=== PATIENT | female | born 1975 | race Caucasian/White ===

== ENCOUNTER 2017-06-16 16:22 | Inpatient (IN) | payer OTHER ==
[~2017-06-16] VITALS: Ht 162.6 cm; Wt 99.6 kg
[~2017-06-16 16:22] MED LIST: ATIVAN1 MG PO; DEPAKOTE ER500 MG PO; DIVALPROEX SOD500 M1 PO; OLANZAPINE10 MG PO; TRIHEXYPHENIDYL5 M1 PO
--- NOTE | 2017-06-16 16:25 | ED PSYCHIATRIC COMPLAINT ---
History of Present Illness General Chief Complaint: Psychiatric Related Complaint Stated Complaint: BIBA PSYCH EVAL Source: patient, family Exam Limitations: language barrier Allergies Coded Allergies: NO KNOWN ALLERGIES (06/16/17) Reconcile Medications Aripiprazole (Abilify) 10 MG TABLET 10 MG PO DAILY MENTAL HEALTH (Reported) Divalproex Sodium 500 MG TABLET.DR 1 TAB PO TID bipolar Lorazepam (Ativan) 1 MG TAB 1 TAB PO BID ANXIETY Lorazepam (Ativan) 1 MG TAB 1 TAB PO Q8P PRN ANXIETY Olanzapine 10 MG TAB 1 TAB PO DAILY ANXIETY TRIHEXYPHENIDYL HCL (Trihexyphenidyl Hydrochloride) 5 MG TABLET 1 TAB PO TID ANXIETY/DEPRESSION Triage Nurses Notes Reviewed? yes Onset: Gradual Duration: few months Timing: recent history Severity: severe Associated Symptoms: AGITATION, HALLUCINATIONS : No HPI: This is a 42-year-old female with history of bipolar disorder off her meds for approximately 6 months presents to the ER with family for chief complaint of agitation, screaming at family members. Her sister reports that she had visions that Daniel told her to stop her medications several months ago. SHe just came back from visiting her homeland [place] for the past several months and states that her behavior is out of control and they have been trying to plead with her to get back on her medications with no effect. (Tracy Muniz MD) Vital Signs & Intake/Output Vital Signs & Intake/Output Vital Signs Date Time Temp Pulse Resp B/P B/P Pulse O2 O2 Flow FiO2 Mean Ox Delivery Rate 06/18 0846 98.1 94 114/86 06/17 2123 98.2 96 145/82 06/17 1810 98.4 90 16 144/67 98 Room Air ED Intake and Output 06/18 0000 06/17 1200 Intake Total Output Total Balance Patient 220 lb Weight (Niall OAKES,Mejia Cordova) Past History Travel History Traveled to [place] past 21 day No Psychosocial History What is your primary language Thai (Tracy Muniz MD) Medical History Any Pertinent Medical History? see below for history Surgical History Surgical History: non-contributory Family History Hx Contributory? No (Niall OAKES,Mejia Cordova) Review of Systems Review of Systems Constitutional: Reports: no symptoms. EENTM: Reports: no symptoms. Respiratory: Reports: no symptoms. Cardiovascular: Reports: no symptoms. GI: Reports: no symptoms. Genitourinary: Reports: no symptoms. Musculoskeletal: Reports: no symptoms. Skin: Reports: no symptoms. Neurological/Psychological: Reports: no symptoms. Hematologic/Endocrine: Reports: no symptoms. Immunologic/Allergic: Reports: no symptoms. All Other Systems: Reviewed and Negative (Mejia Tierney MD) Physical Exam Physical Exam Behavoir/Eye Contact/Speech: increased rate of speech, good eye contact Thoughts/Hallucinations: auditory hallucinations, phobic, mandaeism Skin: intact, normal color, warm/dry SAD PERSONS Done? patient not suicidal (Tracy Muniz MD) Physical Exam General Appearance: well developed/nourished, mild distress Head: atraumatic, normal appearance Eyes: Bilateral: normal appearance. Ears, Nose, Throat: normal pharynx, normal ENT inspection Neck: normal inspection, supple, full range of motion Respiratory: normal breath sounds Cardiovascular: regular rate/rhythm Gastrointestinal: normal bowel sounds, soft, non-tender Extremities: normal range of motion Neurological/Psychiatric: no motor/sensory deficits, agitated, anxious Appearance/Memory/Insight: impaired insight Thoughts/Hallucinations: no apparent hallucination SAD PERSONS SAD PERSONS Response Value Depression/Hopelessness? yes 2 Rational Thinking Loss? yes 2 Single//? yes 1 Social Support? has no support 1 Total 6 SAD PERSONS Done? yes (Niall OAKES,Mejia Cordova) Progress Differential Diagnosis: bipolar, adjustment disorder vs other. , MANIC EPISODE, HALLUCINATIONS,PSYCHOSIS, SUBSTANCE ABUSE Hand-Off Endorsed To: Mejia Tierney MD Endorsed Time: 2308 Pending: consult (CRISIS INPATIENT BED) (Tracy Muniz MD) Differential Diagnosis: drug intoxication, bipolar, adjustment disorder vs other. Plan of Care: Orders Procedure Date/time Status VALPROIC ACID 06/21 0600 Active Regular Diet 06/18 B Active Change service to 06/18 UNK Active Vital Signs 06/17 2115 Complete Inpt Psych Teach/Educate 06/17 2115 Active Nutritional Intake, Monitor 06/17 2115 Active Inpt Psych Auricular Acupunctu 06/17 2115 Active Add-on Test (ER Only) 06/17 1713 Active Patient Data - inpatient psych 06/17 1607 Active Admit to inpatient psych 06/17 1607 Active Admit to inpatient psych 06/17 1348 Active Continuous Observation Monitor 06/17 1227 Complete Lab Add-on Test 06/17 UNK Active Vital Signs 06/17 UNK Active Nursing Misc 06/17 UNK Active Alternative Nursing Therapy 06/17 UNK Active Activity/Ambulation 06/17 UNK Active TSH REFLEX 06/16 1730 Complete LIPID PANEL 06/16 1730 Complete HUMAN BETA HCG SCREEN 06/16 1730 Complete GLYCOSYLATED HGB 06/16 1730 Complete DEPAKOTE LEVEL 06/16 1730 Complete AMYLASE 06/16 1730 Complete Intake & Output 06/16 1642 Complete Current Medications Sig/Jose Luis Start time Last Medication Dose Stop Time Status Admin Lorazepam 2 MG AT BEDTIME 06/18 2200 AC (Ativan) Acetaminophen 650 MG Q6P PRN 06/17 1615 AC (Tylenol) Al Hydroxide/Mg 30 ML Q4-6 PRN PRN 06/17 1615 AC Hydroxide (Maalox Plus) Benztropine Mesylate 1 MG Q6P PRN 06/17 1615 AC 06/18 (Cogentin 1 MG 1009 Tablet) Benztropine Mesylate 1 MG Q6P PRN 06/17 1615 AC (Cogentin) Haloperidol 5 MG Q6P PRN 06/17 1615 AC 06/18 (Haldol) 1009 Haloperidol 5 MG Q6P PRN 06/17 1615 AC (Haldol) Lorazepam 2 MG Q6P PRN 06/17 1615 AC (Ativan) Magnesium Hydroxide 30 ML AT BEDTIME PRN 06/17 1615 AC (Milk Of Magnesia) Aripiprazole 10 MG DAILY 06/17 1512 AC 06/18 (Abilify) 0814 Divalproex Sodium 1,000 MG BID 06/17 1511 AC 06/18 (Depakote) 0814 Laboratory Tests 06/17/17 1611: Urine Test Cancelled Hand-Off Endorsed To: Lori OAKES,Naveed Gibson Endorsed Time: 0700 Pending: consult (Niall OAKES,Mejia Cordova) Departure Departure Condition: Stable Referrals: Bianka Jasmine DO (PCP/Family) Departure Forms: Customer Survey General Discharge Information (Flavio OAKES,Tracy) Departure Disposition: STILL A PATIENT Clinical Impression Primary Impression: Agitation PA/CHRISTIAN EDUCATION DIRECTOR Co-Sign Statement Statement: ED Attending supervision documentation- [] I saw and evaluated the patient. I have also reviewed all the pertinent lab results and diagnostic results. I agree with the findings and the plan of care as documented in the PA's/CHRISTIAN EDUCATION DIRECTOR's documentation. [x I have reviewed the ED Record and agree with the PA's/CHRISTIAN EDUCATION DIRECTOR's documentation. [] Additions or exceptions (if any) to the PAs/CHRISTIAN EDUCATION DIRECTOR's note and plan are summarized below: [] (Niall OAKES,Mejia Cordova) Psych Admission Note Psychiatric Admission: I have seen and evaluated FREDDY CARRILLO. I have also reviewed all the pertinent lab results and diagnostic results. FREDDY CARRILLO will be admitted to our inpatient Psychiatric unit for treatment and care. (Lori OAKES,Naveed Gibson)
[2017-06-16 17:40] LABS: ABSOLUTE BASOPHIL COUNT 0.1 /CUMM (0.0-0.2); ABSOLUTE EOSINOPHIL COUNT 0.1 /CUMM (0.0-0.7); ABSOLUTE GRANULOCYTE CT 5.1 /CUMM (1.4-6.5); ABSOLUTE LYMPH COUNT 2.3 /CUMM (1.2-3.4); ABSOLUTE MONOCYTE COUNT 0.6 /CUMM (0.10-0.60); BASOPHIL % 0.8 % (0.0-2.0); EOSINOPHIL % 0.7 % (0-5); GRANULOCYTE % 62.9 % (42.2-75.2); HEMATOCRIT 34.4 % (37-47); MEAN CORPUSCULAR HGB 31.4 PG (27.0-31.0); MEAN CORPUSCULAR HGB CONC 33.9 G/DL (33.0-37.0); MEAN CORPUSCULAR VOLUME 92.7 FL (81.0-99.0); MEAN PLATELET VOLUME 7.8 FL (7.4-10.4); PLATELET COUNT 304 /CUMM (130-400); RBC DISTRIBUTION WIDTH 13.9 % (11.5-14.5); RED BLOOD CELL CT 3.72 /CUMM (4.20-5.40); WHITE BLOOD CELL COUNT 8.1 /CUMM (4.8-10.8)
--- NOTE | 2017-06-16 19:53 | ED PSYCH CRISIS CONSULTATION ---
See Addendum Crisis Consult Basic Assessment Date of Consult: 06/16/17 Responsible Person/Accompanied By: Brought in on emergency certificate from [facility] Insurance Authorization: Insurance #1: Insurance name: BERTIN LEVY Policy number: [id number] ED Provider: Patient's ED Provider: Tracy Muniz MD Primary Care Physician: Patient's PCP: Bianka Jasmine DO PCP's Current Psychiatrist: No current psychiatrist Chief Complaint: Mood disorder / possible bipolar w/ manic symptoms Patient's Quote: ""I eat a little...I'm not crazy...I don't need medication." Present Illness: Patient crisis evaluation conducted using [employer] snorkelling instructor service ( snorkelling instructor #[id number]) Patient is a 42 year old female, a legal resident of the [place] from [place]. Patient is Niuean-Cheondoism. She has a historical diagnosis of bipolar disorder per previous emergency department visit records. Patient was previously prescribed Depakote, Zyprexa, and Ativan. Patient received treatment from [facility] and [facility]. Patient is single with no children. Per patient's brother and sister, she was medication compliant until ~8 months ago when she refused to take her psychotropic medicaiton. Patient then moved to [place] for a period of 6 months and recently returned to the [place]11[place]2017. Patient resides with her two biological parents and is currently staying in a hotel room. She has the support of her adult brother, Stacy and sister Rosalba Goodman . Patient presents with manic mood, hyperverbal speech, and disorganized thinking. Patient states "I'm a little nervous....I can take care of myself...I do my own hair....I like [place]...I love [place]...I go to school." Patient had difficulty with responding appropriately to questions and was tangential. Mood lability was observed during interview with patient tearful at times and then incongruent affect. Patient does not have any history of suicidal ideation per brother. Patient does not have any past inpatient psychiatric admissions per brother. [facility] quality rn reports patient's family observed her responsing to internal stimuli. This telegraphic typewriter operator did not observe any indication of hallucinations. [facility] clinician also noted oriental orthodox delusion with patient stating to her "Vadim said to stop taking medications." Patient also stated to this telegraphic typewriter operator that she believes in Vadim and then she fell to the floor on her knees and moved her hand in a cross motion. Her brother asserts his family is Sikhism Cheondoism but her behavior and religiosity is atypical. Patient's family reports she is verbally aggressive with family members and has been combative. Also, family reports patient has been binge eating and experiences insomnia. Patient's urine toxicology screening is negative for all substances. Patient's Address: [id number] [place] [address] Who Do You Live With? Mother (and father in a hotel room) Family/Informants Interviewed: Brother Stacy and Sister Rosalba Allergies - Coded Allergies: NO KNOWN ALLERGIES (03/21/14) Current Medications - Scheduled Medications Divalproex Sodium 500 MG TABLET.DR 1 TAB PO TID BIPOLAR #90 TAB Prescribed by Jamal Donovan on 04/06/14 Divalproex Sodium 500 MG TABLET.DR 1 TAB PO TID bipolar #90 TAB Prescribed by Jamal Donovan on 04/28/14 Lorazepam (Ativan) 1 MG TAB 1 TAB PO BID ANXIETY #60 Prescribed by Jamal Donovan on 04/06/14 Olanzapine 10 MG TAB 1 TAB PO DAILY ANXIETY #30 Prescribed by Jamal Donovan on 04/06/14 Olanzapine 10 MG TAB 1 TAB PO DAILY ANXIETY/DEPRESSION/BIPOLAR #30 Prescribed by Jamal Donovan on 04/28/14 TRIHEXYPHENIDYL HCL (Trihexyphenidyl Hydrochloride) 5 MG TABLET 1 TAB PO TID ANXIETY/DEPRESSION #90 TAB Prescribed by Jamal Donovan on 04/06/14 TRIHEXYPHENIDYL HCL (Trihexyphenidyl Hydrochloride) 5 MG TABLET 1 TAB PO TID bipolar/anxiety #90 TAB Prescribed by Jamal Donovan on 04/28/14 Scheduled PRN Medications Lorazepam (Ativan) 1 MG TAB 1 TAB PO Q8P PRN ANXIETY #30 Prescribed by Jamal Donovan on 04/28/14 Laboratory Results: Laboratory Tests 06/16/17 1730: Anion Gap 8, Estimated GFR > 60, BUN/Creatinine Ratio 35.0 H, Glucose 90, Calcium 9.5, Total Bilirubin 0.3, AST 16, ALT 23, Alkaline Phosphatase 45, Total Protein 6.8, Albumin 4.2, Globulin 2.6, Albumin/Globulin Ratio 1.6, CBC w Diff NO MAN DIFF REQ, RBC 3.72 L, MCV 92.7, MCH 31.4 H, RDW 13.9, MPV 7.8, Gran % 62.9, Lymphocytes % 28.1, Monocytes % 7.5, Eosinophils % 0.7, Basophils % 0.8, Absolute Granulocytes 5.1, Absolute Lymphocytes 2.3, Absolute Monocytes 0.6, Absolute Eosinophils 0.1, Absolute Basophils 0.1, PUBS MCHC 33.9, Serum Alcohol < 10.0 06/16/17 1726: Urine Opiates Screen < 100.00, Methadone Screen < 40, Barbiturate Screen < 60, Ur Phencyclidine Scrn < 6.00, Amphetamines Screen < 100, U Benzodiazepines Scrn < 85, Urine Cocaine Screen < 50, Urine Cannabis Screen < 5.00, Urine Color STRAW , Urine Clarity CLEAR, Urine pH 6.0, Ur Specific [place] 1.010, Urine Protein NEG, Urine Ketones NEG, Urine Nitrite NEG, Urine Bilirubin NEG, Urine Urobilinogen 0.2, Ur Leukocyte Esterase NEG, Ur Microscopic EXAM NOT REQUIRED, Urine Hemoglobin NEG, Urine Glucose NEG Past History Past Medical History Any Pertinent Medical History? unobtainable Neurological: NONE, delerium EENT: NONE Cardiovascular: NONE Respiratory: NONE Gastrointestinal: NONE Hepatic: NONE Renal: NONE Musculoskeletal: NONE Psychiatric: bipolar disease Endocrine: NONE Blood Disorders: NONE Cancer(s): NONE LEAN MANUFACTURING SPECIALIST/Reproductive: NONE Past Surgical History Surgical History: none Psychosocial History Strengths/Capabilities: Patient has a very supportive family. Patient is interested in adult education classes. Physical Limitations (Interventions): None assessed Psychiatric Treatment History Psych Treatment Psychiatric Treatment Yes Inpatient Treatment No (Per family) Outpatient Treatment Yes ([facility]) Location of Treatment [place], [place] Reason for Treatment Bipolar disorder Dates of Treatment 2013 to 2016 Response to Treatment Positive - family reports patient achieved stability when medication compliant. Diagnosis by History: Bipolar disorder Substance Use/Abuse History Drug Use/Abuse Substances Used/Abused No First Use - Last Used - How much used/taken - How often - For how long - Route of use - Substance Abuse Treatment Substance Abuse Treatment Past Substance Abuse [place] No Inpatient Treatment No Outpatient Treatment No Location of Treatment - Reason for Treatment - Dates of Treatment - Response to Treatment - Comments: - Current Mental Status Mental Status Orientation: Person, Place, Situation Affect: Manic Speech: Hyper-verbal Neuro-vegetative: Energy Increased, Sleep Disturbance Appearance Appearance- Dress/Hygiene: Patient dressed in hospital attire - hair observed to be disheveled. No other remarkable features Behaviors Thought Process: Irrational, Tangential Thought Content: Mosque Memory: WNL Insight: WNL SI/HI Risk Assessment Past Suicidal Ideation/Attempts No Current Suicidal Ideation/Att No Past Homicidal Ideation/Att: No Current Homicidal Ideation/Attempts No Degree of Intent: None Gravely Disabled: Lack of Insight, Poor Impulse Control Risk Factors: chronic/serious med cond., medication noncompliant Lethality Ratin PTSD Checklist PTSD Done? pt unable to participate ED Management Sitter: Yes Restraints: No (Patient is calm & cooperative.) DSM5/PS Stressors/Medical Prob Diagnosis' (DSM 5, Stressors, Medical): F31.13 Bipolar I disorder, Current or most recent episode manic, Severe Current GAF: 20 Departure Disposition Psych Medical Clearance Date: 06/16/17 Medically Cleared at: 1800 Time Started: 1800 Time Ended: 1900 Psychiatrist Consulted: Dr. Kera Smith MD Date Disposition Established: 06/16/17 Time Disposition Established: 1929 Plan for Disposition - Modality: Inpatient Psychiatry Facility: Bed search pending Rationale for Disposition: Crisis evaluation reviewed with on-call psychiatrist Dr. Smith. Patient meets criteria for an inpatient psychiatric admission to achieve stabilization. She requires a psychiatric evaluation and consideration of medication management towards untreated bipolar disorder. Patient presents with symptoms consistent with bipolar kaylin. A bed search is pending. Type of IP Admission: PEC Referrals Bianka Jasmine DO (PCP/Family)
--- NOTE | 2017-06-17 14:08 | IP CRISIS DIAG ASSESS PSYCH ---
See Addendum Diagnostic Assessment Basic Assessment Insurance Authorization: Insurance #1: Insurance name: BERTIN LEVY Phone number: Policy number: [id number] Group number: Authorization number: Primary Care Physician: Patient's PCP: Bianka Jasmine DO PCP's Patient's Quote: ""I eat a little...I'm not crazy...I don't need medication." Present Illness: Patient is a 42 year old female, a legal resident of the [place] from [place]. Patient is Tanzanian-Jew. She has a historical diagnosis of bipolar disorder per previous emergency department visit records. Patient was previously prescribed Depakote, Zyprexa, and Ativan. Patient received treatment from [facility] and [facility]. Patient is single with no children. Per patient's brother and sister, she was medication compliant until ~8 months ago when she refused to take her psychotropic medicaiton. Patient then moved to [place] for a period of 6 months and recently returned [place] the [place]11[place]2017. Patient resides with her two biological parents and is currently staying in a hotel room. She has the support of her adult brother, Stacy and sister Rosalba Goodman . Patient presents with manic mood, hyperverbal speech, and disorganized thinking. Patient states "I'm a little nervous....I can take care of myself...I do my own hair....I like [place]...I love [place]...I go to school." Patient had difficulty with responding appropriately to questions and was tangential. Mood lability was observed during interview with patient tearful at times and then incongruent affect. Patient does not have any history of suicidal ideation per brother. Patient does not have any past inpatient psychiatric admissions per brother. [facility] carton forming machine operator reports patient's family observed her responsing to internal stimuli. This law writer did not observe any indication of hallucinations. [facility] clinician also noted scientologist delusion with patient stating to her "Vadim said to stop taking medications." Patient also stated to this law writer that she believes in Vadim and then she fell to the floor on her knees and moved her hand in a cross motion. Her brother asserts his family is Temple Jew but her behavior and religiosity is atypical. Patient's family reports she is verbally aggressive with family members and has been combative. Also, family reports patient has been binge eating and experiences insomnia. Patient's urine toxicology screening is negative for all substances. Patient's Address: [facility] [id number] [place] [address] Other Phone Number: Who Do You Live With? Mother (and father in a hotel room) Feel Safe Where You Live? Yes Feel Safe in Your Relationship Yes Marital Status: single Do You Have Children? No Primary Language? Malay Language(s) Spoken At Home: Malay Family/Informants Interviewed: Brother Stacy and Sister Rosalba Allergies - Coded Allergies: NO KNOWN ALLERGIES (06/16/17) Current Medications - Scheduled Medications Divalproex Sodium 500 MG TABLET. 1 TAB PO TID BIPOLAR #90 TAB Prescribed by Jamal Donovan on 04/06/14 Divalproex Sodium 500 MG TABLET.DR 1 TAB PO TID bipolar #90 TAB Prescribed by Jamal Donovan on 04/28/14 Lorazepam (Ativan) 1 MG TAB 1 TAB PO BID ANXIETY #60 Prescribed by Jamal Donovan on 04/06/14 Olanzapine 10 MG TAB 1 TAB PO DAILY ANXIETY #30 Prescribed by Jamal Donovan on 04/06/14 Olanzapine 10 MG TAB 1 TAB PO DAILY ANXIETY/DEPRESSION/BIPOLAR #30 Prescribed by Jamal Donovan on 04/28/14 TRIHEXYPHENIDYL HCL (Trihexyphenidyl Hydrochloride) 5 MG TABLET 1 TAB PO TID ANXIETY/DEPRESSION #90 TAB Prescribed by Jamal Donovan on 04/06/14 TRIHEXYPHENIDYL HCL (Trihexyphenidyl Hydrochloride) 5 MG TABLET 1 TAB PO TID bipolar/anxiety #90 TAB Prescribed by Jamal Donovan on 04/28/14 Scheduled PRN Medications Lorazepam (Ativan) 1 MG TAB 1 TAB PO Q8P PRN ANXIETY #30 Prescribed by Jamal Donovan on 04/28/14 Lab Results: Laboratory Tests 06/16/17 1730: Anion Gap 8, Estimated GFR > 60, BUN/Creatinine Ratio 35.0 H, Glucose 90, Calcium 9.5, Total Bilirubin 0.3, AST 16, ALT 23, Alkaline Phosphatase 45, Total Protein 6.8, Albumin 4.2, Globulin 2.6, Albumin/Globulin Ratio 1.6, CBC w Diff NO MAN DIFF REQ, RBC 3.72 L, MCV 92.7, MCH 31.4 H, RDW 13.9, MPV 7.8, Gran % 62.9, Lymphocytes % 28.1, Monocytes % 7.5, Eosinophils % 0.7, Basophils % 0.8, Absolute Granulocytes 5.1, Absolute Lymphocytes 2.3, Absolute Monocytes 0.6, Absolute Eosinophils 0.1, Absolute Basophils 0.1, PUBS MCHC 33.9, Serum Alcohol < 10.0 06/16/17 1726: Urine Opiates Screen < 100.00, Methadone Screen < 40, Barbiturate Screen < 60, Ur Phencyclidine Scrn < 6.00, Amphetamines Screen < 100, U Benzodiazepines Scrn < 85, Urine Cocaine Screen < 50, Urine Cannabis Screen < 5.00, Urine Color STRAW , Urine Clarity CLEAR, Urine pH 6.0, Ur Specific [place] 1.010, Urine Protein NEG, Urine Ketones NEG, Urine Nitrite NEG, Urine Bilirubin NEG, Urine Urobilinogen 0.2, Ur Leukocyte Esterase NEG, Ur Microscopic EXAM NOT REQUIRED, Urine Hemoglobin NEG, Urine Glucose NEG Toxicology Screen Completed? Yes Results: negative Past History Past Medical History Medical History: depression bipolar anxiety Past Surgical History Surgical History non-contributory Abuse/Trauma History Trauma History/Current Trauma: Pt unable to participate. Patient's Age at Time of Trauma: 42 Legal History Current Legal Status: none Pending Court Dates: None known. Psychosocial History Strengths/Capabilities: Patient has a very supportive family. Patient is interested in adult education classes. Physical Limitations (Interventions): None assessed Psychiatric Treatment History Psych Treatment Psychiatric Treatment Yes Inpatient Treatment No (Per family) Outpatient Treatment Yes ([facility] and [facility]) Location of Treatment [place], [place] Reason for Treatment Bipolar disorder Dates of Treatment 2013 to 2016 Response to Treatment Positive - family reports patient achieved stability when medication compliant. Diagnosis by History: Bipolar disorder Risk Factors: chronic/serious med cond., high anxiety/distress, poor impulse control, medication noncompliant Substance Use/Abuse History Drug Use/Abuse minimum 12mo Hx Substances Used/Abused No First Use - Last Used - How much used/taken - How often - For how long - Route of use - Substance Abuse Treatment Substance Abuse Treatment Past Substance Abuse [place] No Inpatient Treatment No Outpatient Treatment No Location of Treatment - Reason for Treatment - Dates of Treatment - Response to Treatment - Education History Highest Level of Education: not sure Current Mental Status Mental Status Orientation: Person, Place, Situation Affect: Labile, Manic Speech: Hyper-verbal Neuro-vegetative: Appetite Increased, Concentration Poor, Energy Increased, Sleep Disturbance Appearance Appearance- Dress/Hygiene: Patient dressed in hospital attire - hair observed to be disheveled. No other remarkable features Behaviors Thought Process: Irrational, Tangential Thought Content: Mandaen Memory: WNL Insight: Poor SI/HI Risk Assessment - Minimum 6mo History- Past Suicidal Ideation/Attempts No Current Suicidal Ideation/Att No Past Homicidal Ideation/Att: No Current Homicidal Ideation/Attempts No Degree of Intent: None Gravely Disabled: Lack of Insight, Poor Impulse Control Risk Factors: chronic/serious med cond., medication noncompliant Lethality Ratin Needs/Init TX Plan/Goals: Psychiatric evaluation and medication consideration. Stabilize mood. AUDIT-C Questionnaire: AUDIT-C Questionnaire: Response Value ETOH use in the past year Never 0 # drinks typical/day Doesn't Drink 0 6 or > drinks per occasion Never 0 Total 0 DSM5/PS Stressors/Medical Prob Diagnosis' (DSM 5, Stressors, Medical): F31.13 Bipolar I disorder, Current or most recent episode manic, Severe Current GAF: 20
[2017-06-17 21:23] VITALS: BP 145/82
[2017-06-17] MEDS ORDERED: ABILIFY10 M1 PO (23:39)
--- NOTE | 2017-06-18 07:38 | History & Physical ---
General Information and HPI MD Statement: I have seen and personally examined FREDDY CARRILLO and documented this H&P. The patient is a 42 year old F who presented with a patient stated chief complaint of [ medical evaluation]. Source of Information: patient Exam Limitations: clinical condition History of Present Illness: 42 Y O F with ?Hx Bipolar disorder came to ER through EMS for agitation. Patient is from [place] and speaks Serbian which is one of the communication barrier, at the same she has flight of thoughts and hypomania because of which it is difficult to obtain Hx. Currently she offers no complains, complete ROS is unremarkable. Denied Smoking, Alcohol, illicit drug use. No major past medical problem. According to chart, patient has been diagnosed to have bipolar disorder since 6 months and not been compliant with her medications. Allergies/Medications Allergies: Coded Allergies: NO KNOWN ALLERGIES (06/16/17) Home Med list Aripiprazole (Abilify) 10 MG TABLET 10 MG PO DAILY MENTAL HEALTH (Reported) Divalproex Sodium 500 MG TABLET.DR 1 TAB PO TID bipolar Lorazepam (Ativan) 1 MG TAB 1 TAB PO BID ANXIETY Lorazepam (Ativan) 1 MG TAB 1 TAB PO Q8P PRN ANXIETY Olanzapine 10 MG TAB 1 TAB PO DAILY ANXIETY TRIHEXYPHENIDYL HCL (Trihexyphenidyl Hydrochloride) 5 MG TABLET 1 TAB PO TID ANXIETY/DEPRESSION Compliance With Home Meds: POOR Past History Travel History Traveled to [place] past 21 day No Medical History Any Pertinent Medical History? unobtainable Neurological: NONE EENT: NONE Cardiovascular: NONE Respiratory: NONE Gastrointestinal: NONE Hepatic: NONE Renal: NONE Musculoskeletal: NONE Psychiatric: bipolar disease Endocrine: NONE Blood Disorders: NONE Cancer(s): NONE GRAIN BLENDER/Reproductive: NONE History of MRSA: No History of VRE: No History of CDIFF: No Isolation History: Standard Surgical History Surgical History: non-contributory Past Family/Social History Family History Relations & Conditions if any MOTHER FH: heart disease Psychosocial History Where do you live? Home Primary Language: Serbian Smoking Status: Never Smoked ETOH Use: denies use Illicit Drug Use: denies illicit drug use Review of Systems Review of Systems Constitutional: Reports: no symptoms. EENTM: Reports: no symptoms. Cardiovascular: Reports: no symptoms. Respiratory: Reports: no symptoms. GI: Reports: no symptoms. Genitourinary: Reports: no symptoms. Musculoskeletal: Reports: no symptoms. Skin: Reports: no symptoms. Exam & Diagnostic Data Last 24 Hrs of Vital Signs/I&O Vital Signs Date Time Temp Pulse Resp B/P B/P Pulse O2 O2 Flow FiO2 Mean Ox Delivery Rate 06/17 2123 98.2 96 145/82 06/17 1810 98.4 90 16 144/67 98 Room Air 06/17 0943 98.6 105 21 142/78 100 Room Air Intake & Output 06/18 0000 06/18 0800 06/18 1600 Intake Total Output Total Balance Patient 99.564 kg Weight Physical Exam General Appearance Alert, Cooperative, No Acute Distress Skin No Rashes, dry and breakdowns on hands HEENT Atraumatic, PERRLA, EOMI Neck Supple, No JVD, No thryomegaly Lymphatic Cervical nl Cardiovascular Regular Rate, Normal S1, Normal S2, ? parasternal systolic murmur 2/6 Lungs Clear to Auscultation, Normal Air Movement Abdomen Normal Bowel Sounds, Soft, No Tenderness Neurological Exam Findings: Normal Gait, Normal Speech, Strength at 5/5 X4 Ext, Normal Tone, Sensation Intact, Cranial Nerves 3-12 NL, Reflexes 2+ Cranial Nerves II through XII: 3 to 12 intact Extremities No Clubbing, No Cyanosis, No Tenderness/Swelling, bilateral LE edema Last 24 Hrs of Labs/Jan: Laboratory Tests 06/17 06/16 1611 1730 Chemistry Sodium (137 - 145 mmol/L) 135 L Potassium (3.5 - 5.1 mmol/L) 3.8 Chloride (98 - 107 mmol/L) 99 Carbon Dioxide (22 - 30 mmol/L) 28 Anion Gap (5 - 16) 8 BUN (7 - 17 mg/dL) 21 H Creatinine (0.5 - 1.0 mg/dL) 0.6 Estimated GFR (>60 ml/min) > 60 BUN/Creatinine Ratio (7 - 25 %) 35.0 H Glucose (65 - 99 mg/dL) 90 Hemoglobin A1c (4.2 - 5.8 %) Pending Calcium (8.4 - 10.2 mg/dL) 9.5 Total Bilirubin (0.2 - 1.3 mg/dL) 0.3 AST (14 - 36 U/L) 16 ALT (9 - 52 U/L) 23 Alkaline Phosphatase (<127 U/L) 45 Total Protein (6.3 - 8.2 g/dL) 6.8 Albumin (3.5 - 5.0 g/dL) 4.2 Globulin (1.9 - 4.2 gm/dL) 2.6 Albumin/Globulin Ratio (1.1 - 2.2 %) 1.6 Triglycerides (<150 mg/dL) 79 Cholesterol (<200 MG/DL) 229 H LDL Cholesterol, Calc (65 - 129 mg/dL) 117 HDL Cholesterol (40 - 60 mg/dL) 97 H Cholesterol/HDL Ratio (0.00 - 4.23 %) 2 Amylase (30 - 110 U/L) 93 TSH &T3 &Free T4 Intrp (0.270 - 4.20 uIU/mL) 2.960 Total Beta HCG (NEGATIVE) NEGATIVE Hematology CBC w Diff NO MAN DIFF REQ WBC (4.8 - 10.8 /CUMM) 8.1 RBC (4.20 - 5.40 /CUMM) 3.72 L Hgb (12.0 - 16.0 G/DL) 11.7 L Hct (37 - 47 %) 34.4 L MCV (81.0 - 99.0 FL) 92.7 MCH (27.0 - 31.0 PG) 31.4 H RDW (11.5 - 14.5 %) 13.9 Plt Count (130 - 400 /CUMM) 304 MPV (7.4 - 10.4 FL) 7.8 Gran % (42.2 - 75.2 %) 62.9 Lymphocytes % (20.5 - 51.1 %) 28.1 Monocytes % (1.7 - 9.3 %) 7.5 Eosinophils % (0 - 5 %) 0.7 Basophils % (0.0 - 2.0 %) 0.8 Absolute Granulocytes (1.4 - 6.5 /CUMM) 5.1 Absolute Lymphocytes (1.2 - 3.4 /CUMM) 2.3 Absolute Monocytes (0.10 - 0.60 /CUMM) 0.6 Absolute Eosinophils (0.0 - 0.7 /CUMM) 0.1 Absolute Basophils (0.0 - 0.2 /CUMM) 0.1 PUBS MCHC (33.0 - 37.0 G/DL) 33.9 Toxicology Valproic Acid (50 - 120 ug/mL) < 10.0 L Serum Alcohol (<10 MG/DL) < 10.0 Urines Urine Test Cancelled 06/16 1726 Toxicology Urine Opiates Screen (>2000 NG/ML) < 100.00 Methadone Screen (>300 NG/ML) < 40 Barbiturate Screen (>200 NG/ML) < 60 Ur Phencyclidine Scrn (>25 NG/ML) < 6.00 Amphetamines Screen (>1000 NG/ML) < 100 U Benzodiazepines Scrn (>200 NG/ML) < 85 Urine Cocaine Screen (>300 NG/ML) < 50 Urine Cannabis Screen (>50 NG/ML) < 5.00 Urines Urine Color (YEL,AMB,STR) STRAW Urine Clarity (CLEAR) CLEAR Urine pH (5.0 - 8.0) 6.0 Ur Specific [place] (1.001 - 1.035) 1.010 Urine Protein (NEG,<30 MG/DL) NEG Urine Ketones (NEG) NEG Urine Nitrite (NEG) NEG Urine Bilirubin (NEG) NEG Urine Urobilinogen (0.1 - 1.0 EU/dl) 0.2 Ur Leukocyte Esterase (NEG) NEG Ur Microscopic EXAM NOT REQUIRED Urine Hemoglobin (NEG) NEG Urine Glucose (N MG/DL) NEG Laboratory Tests 06/17/17 1611: Urine Test Cancelled Assessment/Plan Assessment: # Bipolar disorder : agree with psychiatry plan As Ranked By This Provider Problem List: 1. Bipolar 1 disorder Miscellaneous Miscellaneous Documentation Attending Case Discussed With: Mejia Zapien MD Primary Care Physician: Bianka Jasmine DO Patient sees these Specialists unknown Level of Patient Care: JOSE Carranza Attending MD Review Statement Attending Statement Attending MD Statement: I personally interviewed and noted H and p
--- NOTE | 2017-06-18 08:31 | Admission Certification ---
Admission Certification Certification Statement - As attending physician, I certify that at the time of - admission, based on clinical presentation, severity of - symptoms, need for further diagnostic testing and - therapeutic interventions, and risk of adverse outcomes - without in-hospital treatment, in my clinical assessment, - this patient requires an acute hospital stay for a minimum - of two nights or longer. I have also considered psychsocial - factors such as support system, advanced age, financial - issues, cognitive issues, and failed out-patient treatments, - past re-admission history, safety of patient, and lack of - compliance as applicable. Specific rationale supporting this admission is: bipolar disorder
[2017-06-18 08:46] VITALS: BP 114/86
--- NOTE | 2017-06-18 11:06 | CPS PROVIDER INIT ASMT PSYCH ---
Psychiatric Admission Mobile Equipment Operator's Note Reviewed: Yes Patient Seen and Examined: Yes Identifying Information: 42-year-old female of [place] origins with a history of bipolar mood disorder presented [facility] the emergency department at [facility] and what seems to have been manic state. Chief Complaint: "I eat a little, I am not crazy, I do not need medication." Reaction to Hospitalization: The patient did not want to be hospitalized History of Present Illness Onset of Illness: The patient may have been slowly deteriorating over the past few months. The patient has been with [facility] and [facility]. Seems that she has not been compliant with medication for about 6 months or so. The patient reportedly was showing some manic symptoms including hyper verbal speech and some disorganized thinking and episcopal preoccupation. The patient did not have any thoughts of suicide and there was no thoughts of violence or homicide. Circumstances Leading to Admission: As above it seems that she had some acute manic decompensation. According to the electronic record available to me there was a reference that [facility] rampman reported that the family reported that patient may have been responding to internal stimuli. Problem(s) Justifying Need for Admission: Acute manic symptoms Other HPI: The patient has been seeing Dr. Naveed Matos at [facility] Past Psychiatric History Past Diagnosis(es)- if any: Bipolar mood disorder Past Precipitating Factors- if any: Medication noncompliance - Include inpatient and outpatient treatment Treatment History: Patient was never in an inpatient psychiatric unit. The patient has been with [facility] for the past 2-3 years. History of Suicide Attempts or Gestures No history of suicide attempts Substance Abuse History: No history of substance abuse Allergies: Coded Allergies: NO KNOWN ALLERGIES (06/16/17) Home Med List: Depakote and Abilify and Ativan - Include any medical condition(s) that may - impact the patient's recovery/remission Past Medical History: The patient has no known medical problems Past History Medical History Any Pertinent Medical History? unobtainable Neurological: NONE EENT: NONE Cardiovascular: NONE Respiratory: NONE Gastrointestinal: NONE Hepatic: NONE Renal: NONE Musculoskeletal: NONE Psychiatric: bipolar disease Endocrine: NONE Blood Disorders: NONE Cancer(s): NONE BENEFITS DIRECTOR/Reproductive: NONE History of MRSA: No History of VRE: No History of CDIFF: No Isolation History: Standard Surgical History Surgical History: non-contributory Psychiatric Family/Social Hx Family History Psychiatric Illness: No known psychiatric illness in the family Substance Use: No known alcohol or substance abuse history in the family Suicides: No known suicides Social History Living Situation: Patient was living with her parents currently they are in transition and may have been staying at the hotel. Significant Relationships (family/friends): Both parents a brother and a sister Education: Unknown Vocation/Occupation: Unemployed Legal: None Healthly Behaviors Screening Tobacco Screening Tobacco Use from ED Docu: Never used Daily Tobacco Use Amount/Type: =< 4 Cigarettes daily - If tobacco counseling indicated - the following topics are required. - #1 Recognizing dangerous situations. - #2 Coping Skills. - #3 Basic information about quitting. Status of Tobacco Cessation Counseling: Not Applicable Cessation Med Status Not Applicable Alcohol Screening - ETOH screen POS if BAL >=80 or Audit-C>= M4/F3 Audit-C Score from Diag Assess: 0 Blood Alcohol Level: Laboratory Tests 06/16 1730 Toxicology Serum Alcohol (<10 MG/DL) < 10.0 Alcohol Use Screening Results: Neg per Audit C &/or BAL - If ETOH counseling indicated - the following topics are required. - #1 Express concern about the patient's - drinking at unhealthy levels, include informing - of national norms for moderate drinking: - men <= 14 drinks/week, max 4 drinks/occasion - women <= 7 drinks/week, max 3 drinks/occasion - #2 Providing feedback, including linking alcohol to - negative physical effects (liver injury, hypertension) - negative emotional effects (relationship problems and - depression) - negative occupational consequences (reduced work - performance) - #3 Advising the patient to abstain from alcohol or - to drink below national norms for moderate drinking - (as listed above). Status of ETOH Use Counseling: N/A B/C NO ETOH Use Metabolic Screening - Screen if on a Neuroleptic Medication - Metabolic screening should include: - Blood Pressure, BMI, Glucose or Hgb A1c, & a - Lipid profile from within the past 365 days. Metabolic Screening () Not Applicable, patient not on a neuroleptic. OR ([X]) Patient on a neuroleptic(s) . Enter below results for Hemoglobin A1C, and lipid panel if obtained during the last 365 days. BMI: 37.700 Blood Pressure: 114/86 Laboratory Results From [facility] (If applicable): Lab Amylase 93 U/L 06/16/17 1730 Cholesterol 229 MG/DL H 06/16/17 1730 Cholesterol/HDL Ratio 2 % 06/16/17 1730 HDL Cholesterol 97 mg/dL H 06/16/17 1730 Hemoglobin A1c 5.3 % 06/16/17 1730 LDL Cholesterol, Calc 117 mg/dL 06/16/17 1730 TSH 2.120 uIU/mL 01/31/15 UNK Triglycerides 79 mg/dL 06/16/17 1730 Exam and Plan Mental Status Examination Ambulation Status: fully mobile Appearance: long brown hair, prescription glasses Attitude towards examiner: cooperative, friendly Psychomotor activity: increased Behavior: no bizarreness Quality of speech: loud, overproductive , some pressure Affect: expansive Mood: not depressed, hypomania Suicidal Ideation: none Homicidal Ideation: no Hallucinations: no Paranoid/Delusional Material: no paranoia, some episcopal pre-occupation Difficulties with thought organization: minor, tangential, circumstantial Insight: partial insight Judgment: fair Orientation: oriented to time, place, and person Cognition: some difficulties with attention and concentration Memory Function: no deficits Estimate of intellectual functioning: average Assets/Strengths Patient Identified Assets/Strengths: honest, likeable Impression/Plan Impression and Plan: 42-year-old single female of [place] origins ([place]) who was admitted in what seemed to be manic decompensation of Bipolar I, likely due to medication non- adherence - Include all active medical diagnosis that require tx DSM 5 Diagnosis(es): Bipolar I, MRE manic with psychotic symptoms - Initial Tx Plan for Active Psych & Medical Conditions Treatment Plan: Inpatient psychiatric care 15 min checks Increase Abilify to 15 mg daily resume /continue Depakote, check levels Reach out to [facility], Dr. Elizabeth Nursing assessments every shift Discharge planning and collateral Activity, Milieu, and Group therapy - Factors that would help patient function - in a less restrictive setting. Factors: medication adherence
[2017-06-18 12:39] VITALS: BP 122/70
--- NOTE | 2017-06-18 13:35 | SOCIAL WORKER SOCIAL HX PSYCH ---
Social History Basic Assessment Insurance Authorization: Insurance #1: Insurance name: BERTIN Sanders [employer] [facility] Phone number: Policy number: [id number] Group number: Authorization number: Curr Source of Income/Entitlements: parents Primary Care Physician: Patient's PCP: Bianka Jasmine DO PCP's Present Problem: Patient crisis evaluation conducted using [employer] lead esthetician service ( lead esthetician #[id number]) Patient is a 42 year old female, a legal resident of the [place] from [place]. Patient is Slovak-Orthodox. She has a historical diagnosis of bipolar disorder per previous emergency department visit records. Patient was previously prescribed Depakote, Zyprexa, and Ativan. Patient received treatment from [facility] and [facility]. Patient is single with no children. Per patient's brother and sister, she was medication compliant until ~8 months ago when she refused to take her psychotropic medicaiton. Patient then moved to [place] for a period of 6 months and recently [place] the [place]11[place]2017. Patient resides with her two biological parents and is currently staying in a hotel room. She has the support of her adult brother, Stacy and sister Rosalba Goodman . Patient presents with manic mood, hyperverbal speech, and disorganized thinking. Patient states "I'm a little nervous....I can take care of myself...I do my own hair....I like [place]...I love [place]...I go to school." Patient had difficulty with responding appropriately to questions and was tangential. Mood lability was observed during interview with patient tearful at times and then incongruent affect. Patient does not have any history of suicidal ideation per brother. Patient does not have any past inpatient psychiatric admissions per brother. [facility] access clinician reports patient's family observed her responsing to internal stimuli. This narrative writer did not observe any indication of hallucinations. [facility] clinician also noted pentecostal delusion with patient stating to her "Vadim said to stop taking medications." Patient also stated to this narrative writer that she believes in Vadim and then she fell to the floor on her knees and moved her hand in a cross motion. Her brother asserts his family is Islam Orthodox but her behavior and religiosity is atypical. Patient's family reports she is verbally aggressive with family members and has been combative. Also, family reports patient has been binge eating and experiences insomnia. Patient's urine toxicology screening is negative for all substances. >>>>>>>>>> Jeison Alfred EXPLOSIVE SPECIALIST Primary Language? Czech Language(s) Spoken At Home: Czech Living Situation Other Living Arrangement: relative's/guardian's kadi Feel Safe Where You Are Living Yes Allergies - Coded Allergies: NO KNOWN ALLERGIES (06/16/17) Current Medications - Scheduled Medications Aripiprazole (Abilify) 10 MG TABLET 10 MG PO DAILY MENTAL HEALTH (Reported) Entered as Reported by Rashida Maciel on 06/17/17 2339 Divalproex Sodium 500 MG TABLET.DR 1 TAB PO TID bipolar #90 TAB Prescribed by Jamal Donovan on 04/28/14 Last Taken: 1000MG on 06/17/17 1530 Lorazepam (Ativan) 1 MG TAB 1 TAB PO BID ANXIETY #60 Prescribed by Jamal Donovan on 04/06/14 Last Taken: At an unknown date and time Olanzapine 10 MG TAB 1 TAB PO DAILY ANXIETY #30 Prescribed by Jamal Donovan on 04/06/14 Last Taken: At an unknown date and time TRIHEXYPHENIDYL HCL (Trihexyphenidyl Hydrochloride) 5 MG TABLET 1 TAB PO TID ANXIETY/DEPRESSION #90 TAB Prescribed by Jamal Donovan on 04/06/14 Last Taken: At an unknown date and time Scheduled PRN Medications Lorazepam (Ativan) 1 MG TAB 1 TAB PO Q8P PRN ANXIETY #30 Prescribed by Jamal Donovan on 04/28/14 Last Taken: At an unknown date and time Past History Past Medical History Any Pertinent Medical History? unobtainable Neurological: NONE EENT: NONE Cardiovascular: NONE Respiratory: NONE Gastrointestinal: NONE Hepatic: NONE Renal: NONE Musculoskeletal: NONE Psychiatric: bipolar disease Endocrine: NONE Blood Disorders: NONE Cancer(s): NONE FINGERER/Reproductive: NONE Past Surgical History Surgical History: non-contributory /Family History Place/Country of Origin: [place] Childhood Family Constellation: none stated Primary Childhood Caretakers: father, mother, sibling(s) Family Life During Childhood: Pt said it was good DCF Involvement? No Relationship w/Mother: Pt unable to provide mother's age but stated she loves her mother Relationship w/Father: She loves her father Any Sibling(s)? Yes Sibling's Gender(s)/Age(s): male Sibling 1:, female Sibling 2: Relationship w/Sibling(s): OK Relationship w/Friends: Pt had difficulty responding appropriately to questions and was tangential Family Psych/Sub Abuse/Add Hx: Denies Number of Pregnancies: 0 Number of Miscarriages: 0 Number of Abortions: 0 Other Comments: It is unclear if pt is reliable historian at this time. Abuse/Trauma History Trauma History/Current Trauma: Pt unable to participate. Patient's Age at Time of Trauma: 42 Legal History Legal Guardian/Address/Phone: self Current Legal Status: none Pending Court Dates: none Have you ever been arrested No Hx of Juvenile Legal Charges? No Hx of Adult Legal Charges? No Civil Proceedings: NA Domestic Relations Court: NA Child Protective Serv Involvmnt NA Hotel Supplies Salesperson NA Psychosocial History Primary Support System: father, mother, sibling(s) Strengths/Capabilities: Patient has a very supportive family. Patient is interested in adult education classes. Weaknesses: insight into medication compliance Physical Limitations (Interventions): None assessed Last Physical: unknown History of Seizures? No History of Blackouts? No ADL Limitations: Pt said she can do her own hair . This narrative writer observed pt to be appropriate at lunch and wash hands appropriatley [place]/Social/Peer Relations unknown Meaningful Activities: unknown , pt said she likes to go to school Childhood Muslim: Orthodox Current Sikhism Affiliation: Orthodox Is Spirituality Important to You? yes Patient's Ethnicity: Slovak Cultural/Ethnic Issues: not assessed Are There Developmental Issues? No Milestones Achieved: fine motor, gross motor Psychiatric Treatment History Psych Treatment Inpatient Treatment No (Per family) Outpatient Treatment Yes ([facility]) Location of Treatment [place], [place] Reason for Treatment Bipolar disorder Dates of Treatment 2013 to 2016 Response to Treatment Positive - family reports patient achieved stability when medication compliant. Diagnosis: Bipolar disorder Psychodynamic Issues: none Risk Factors: chronic/serious med cond., high anxiety/distress, poor impulse control, medication noncompliant Substance Use/Abuse History Drug Use/Abuse Substance Used/Abused No History First Use - Last Used - How much used/taken - How often - For how long - Route of use - Have Had Periods of Sobriety? No Explain: NA Relapse History? No Explain: NA Have You Ever Attended AA? No Do You Attend AA Currently? No Do You Have a Sponsor? No Other Community Resources Used: NA Symptoms of Use: NA Substance Abuse Treatment Substance Abuse Treatment Inpatient Treatment No Outpatient Treatment No Location of Treatment - Reason for Treatment - Dates of Treatment - Response to Treatment - Comments: NA Sexual History Sexually Active No # of partners 0 Sexual Orientation Heterosexual Sexual Concerns: none stated Education History Highest Level of Education: not sure Highest Grade Completed: unknown Preferred Learning Style: visual, auditory, experiential HX of Learning Difficulties: None reported Barriers to Learning: None reported Special Communication Needs: None reported Employment History Employment Unemployed Comments: It is unclear. Pt mentioned insurance and working with money possibly. History Have You Been in The ? No Current Mental Status Problem List: 1. Bipolar 1 disorder Mental Status Orientation: Person, Place, Situation Affect: Labile, Manic Speech: Hyper-verbal Neuro-vegetative: Appetite Increased, Concentration Poor, Energy Increased, Sleep Disturbance Appearance Appearance- Dress/Hygiene: Patient dressed in hospital attire - hair observed to be disheveled. No other remarkable features Behaviors Thought Process: Irrational, Tangential Thought Content: Sikhism Memory: WNL Insight: Poor SI/HI Risk Assessment Past Suicidal Ideation/Attempts No Current Suicidal Ideation/Att No Past Homicidal Ideation/Att: No Current Homicidal Ideation/Attempts No Degree of Intent: None Gravely Disabled: Lack of Insight, Poor Impulse Control Risk Factors: Chronic/serious med cond, High Anxiety/Distress, non medication compliance Lethality Ratin - Conclusion and Recommendations for treatment - and discharge planning Summary: Patient crisis evaluation conducted using [employer] lead esthetician service ( lead esthetician #[id number]) Patient is a 42 year old female, a legal resident of the [place] from [place]. Patient is Slovak-Orthodox. She has a historical diagnosis of bipolar disorder per previous emergency department visit records. Patient was previously prescribed Depakote, Zyprexa, and Ativan. Patient received treatment from [facility] and [facility]. Patient is single with no children. Per patient's brother and sister, she was medication compliant until ~8 months ago when she refused to take her psychotropic medicaiton. Patient then moved to [place] for a period of 6 months and recently [place]. Patient resides with her two biological parents and is currently staying in a hotel room. She has the support of her adult brother, Stacy and sister Rosalba Goodman . Patient presents with manic mood, hyperverbal speech, and disorganized thinking. Patient states "I'm a little nervous....I can take care of myself...I do my own hair....I like [place]...I love [place]...I go to school." Patient had difficulty with responding appropriately to questions and was tangential. Mood lability was observed during interview with patient tearful at times and then incongruent affect. Patient does not have any history of suicidal ideation per brother. Patient does not have any past inpatient psychiatric admissions per brother. [facility] access clinician reports patient's family observed her responsing to internal stimuli. This narrative writer did not observe any indication of hallucinations. [facility] clinician also noted pentecostal delusion with patient stating to her "Vadim said to stop taking medications." Patient also stated to this narrative writer that she believes in Vadim and then she fell to the floor on her knees and moved her hand in a cross motion. Her brother asserts his family is Islam Orthodox but her behavior and religiosity is atypical. Patient's family reports she is verbally aggressive with family members and has been combative. Also, family reports patient has been binge eating and experiences insomnia. Patient's urine toxicology screening is negative for all substances. >>>>>>>>>> Jeison POEW
--- NOTE | 2017-06-18 13:44 | SOCIAL WORKER PROG NOTE PSYCH ---
Social Work Progress Note Progress Note SW met with pt to check in. Pt presents as hyperverbal, tangential and loud speech at times. Her eye contact is appropriate. Pt continues to have some difficutly with responding appropriately to questions. Her mood was " good". Denies SI/HI/AH/VH. This scientific writer did not observe pt repsonding to any internal stimuli. Pt said her goal is to go home and continue to go to school.
[2017-06-18 16:13] VITALS: BP 130/79
[2017-06-19 08:12] VITALS: BP 132/77
--- NOTE | 2017-06-19 10:30 | CP SOUTH PROGRESS NOTE PSYCH ---
Psych (Inpt) Progress Note Progress Note Rxoanna is a 42-year-old single female of [place] origin ([place]) who was admitted in what seemed to be manic decompensation of Bipolar I, likely due to medication non-adherence. The patient has been seeing Dr. Naveed Matos at [facility] Mental Status Examination: Roxanna was alert, and oriented to time, place, and person. She was cooperative and friendly. She showed increased Psychomotor activity, no bizarreness. Her speech is loud, overproductive with mild pressure. She continues to have expansive affect, denied feeling depressed, denied thinking of suicide, denied homicidal ideation, no Hallucinations, no Paranoid/Delusional material, no paranoia, some latter day pre-occupation, she has difficulties with thought organization, minor, tangential, circumstantial, partial insight, fair judgment, oriented to time, place, and person, some difficulties with attention and concentration, no deficits memory Function, average intellectual functioning Impression and Plan: DSM 5 Diagnosis(es): Bipolar I, MRE manic with psychotic symptoms Treatment Plan: Continue Inpatient psychiatric care Continue 15 min checks Continue Abilify 15 mg daily continue Depakote 1000 mg BID check levels on 06/21/2017 Continue nursing assessments every shift Continue discharge planning and family meeting for Thursday Continue Activity, Milieu, and Group therapy Continue daily evaluation by a psychiatrist
[2017-06-19 12:08] VITALS: BP 136/67
--- NOTE | 2017-06-19 16:24 | SOCIAL WORKER PROG NOTE PSYCH ---
Social Work Progress Note Progress Note 4:22pm This contract writer met with patient. Discussion was limited due to language barrier. Patient commented briefly on feeling "happy." This contract writer is making attempts to obtain the Martii (mushroom cultivator) for future discussions.
[2017-06-19 16:27] VITALS: BP 129/82
[2017-06-19 19:42] VITALS: BP 153/88
[2017-06-20 08:08] VITALS: BP 130/84
--- NOTE | 2017-06-20 11:47 | CP SOUTH PROGRESS NOTE PSYCH ---
Psych (Inpt) Progress Note Progress Note Include the following elements, when applicable: Involvement in the active treatment of the patient with behavioral observations of the patient and the patient's response to the treatment. Review of the ongoing treatment process in the context of the treatment plan. Indication of how multi-disciplinary staff members are carrying out the treatment plan. Plans for future interventions and recommendations for revision of the treatment plan. Liaison with other physicians/providers. Progress Note: Chart reviewed. Progress discussed with nursing staff. Interviewed patient this morning using an Sami sign language interpreter on sign language interpreter phone. She was quite hyperverbal and tangential, however pleasant and cooperative during the interview. Demonstrated limited insight into her functional difficulties leading to admission as well as her family's concern over her manic behavior. She continued to express hyper religiosity. However, she denies any suicidal or homicidal ideation as well as any perceptual disturbances. While she reports not "needing "any medications, she denies having any medication side effects. Vital signs were reviewed and were within normal limits. There are no new laboratory results today. Mental Status Examination: Mildly disheveled though appropriately dressed woman of apparent stated age. She was cooperative and pleasant. She demonstrates intense eye contact. Her speech was loud, increased in amount, pressured, with appropriate prosody. Her mood was "great, I feel great". Her affect was expansive, mildly labile. Her thought process was tangential at times. She demonstrated thought content of hyper religiosity. She denied any SI or HI. Denies any perceptual disturbances. Her cognition was grossly intact. Her insight was limited however her judgment was fair. Impression and Plan: DSM 5 Diagnosis(es): Bipolar I, MRE manic with psychotic symptoms Treatment Plan: Continue Inpatient psychiatric care Continue 15 min checks Continue Abilify 15 mg daily continue Depakote 1000 mg BID check levels on 06/21/2017 Continue nursing assessments every shift Continue discharge planning and family meeting for Thursday Continue Activity, Milieu, and Group therapy Continue daily evaluation by a psychiatrist
[2017-06-20 12:03] VITALS: BP 126/77
[2017-06-20 15:34] VITALS: BP 136/78
[2017-06-20 20:10] VITALS: BP 144/80
[2017-06-21 07:42] VITALS: BP 133/73
--- NOTE | 2017-06-21 11:14 | CP SOUTH PROGRESS NOTE PSYCH ---
Psych (Inpt) Progress Note Progress Note Include the following elements, when applicable: Involvement in the active treatment of the patient with behavioral observations of the patient and the patient's response to the treatment. Review of the ongoing treatment process in the context of the treatment plan. Indication of how multi-disciplinary staff members are carrying out the treatment plan. Plans for future interventions and recommendations for revision of the treatment plan. Liaison with other physicians/providers. Progress Note: Chart reviewed. Progress discussed with nursing staff. Interviewed patient this morning again using an Polish educational sign language interpreter on educational sign language interpreter phone. In general, much less hyperverbal than yesterday, less expansive mood. Far less tangential. Reports feeling well, reports sleeping well, jokes around that "I haven't been eating enough Jell-O!" She denies any SI, HI, or AVH. She was quite focused on the duration of time for which she will need to remain on medications, and much time was spent performing psychoeducation regarding bipolar disorder and the chronic need for mood stabilizing medication. However she wasn't able to identify any concerning side effects of this time. She also asked for medications for cough and dry heels. Vital signs were reviewed and were within normal limits. VPA level = 90. Her legs demonstrate bilateral pitting edema. Mental Status Examination: Mildly disheveled though appropriately dressed woman of apparent stated age. She was cooperative and pleasant. She again demonstrates intense eye contact. Her speech was again loud and mildly pressure, though noticeably more interruptible than yesterday. Her mood was "good". Her affect remained expansive, mildly labile, at times quite incongruent, and at times somewhat bizarre. Her thought process was tangential at times though more linear than yesterday. She again demonstrated thought content of hyper religiosity. She denied any SI or HI. Denies any perceptual disturbances. Her cognition was grossly intact. Her insight was limited however her judgment was fair. Impression and Plan: DSM 5 Diagnosis(es): Bipolar I, MRE manic with psychotic symptoms Treatment Plan: Continue Inpatient psychiatric care Continue 15 min checks Continue Abilify 15 mg daily. Consider uptitration. continue Depakote 1000 mg BID. At appropriate serum level for acute kaylin Continue nursing assessments every shift Continue discharge planning and family meeting for Thursday Continue Activity, Milieu, and Group therapy Continue daily evaluation by a psychiatrist Added guaifenesin and Aquaphor for dry heels Consider further doses of Lasix for bilateral pitting edema.
[2017-06-21 12:03] VITALS: BP 136/70
[2017-06-21 20:13] VITALS: BP 132/77
[2017-06-22 07:57] VITALS: BP 124/76
[2017-06-22 11:59] VITALS: BP 115/70
--- NOTE | 2017-06-22 15:02 | SOCIAL WORKER TX PLAN PSYCH ---
Treatment Plan - Please Document: - Evidence that there is ongoing collaboration between - the patient and the interdisciplinary team, - including the patient's active participation and - responsibility for engaging in the treatment regimen, - and that the treatment plan is individualized and - relevant to the patient's conditions. - Treatment plan should reflect documentation indicating - that all active therapeutic efforts are included. Strengths/Capabilities: Patient has a very supportive family. Patient is interested in adult education classes. Physical Limitations (Interventions): None assessed Patient Identified Trmt Goals: Wants to stop her medication and go home. Discharge Plan: [facility] - Outpatient, Dr. Matos Problem/Goals #1 Problem #1: psychosis Goal (Short Term): Patient to be safe on unit, eliminate psychoisis, adhere to medications. Patient to verbalize 1-2 reality-oriented statement daily. Attend groups. Goal (Hide Cleaner): maintain stable mood, and maintain medication compliance and treatment. Interventions: Meet with patient daily social professionals and MD, attend all groups (coping skills, medication education), family meeting, collaboration with outpatient provider [facility] regarding progres and discharge planning. Modalities: Reality testing, CBT, DBT, self-soothing coping skills DSM5/PS Stressors/Medical Prob Diagnosis' (DSM 5, Stressors, Medical): F31.13 Bipolar I disorder, Current or most recent episode manic, Severe Current GAF: 20 Treatment Team - Responsibilities of members of the treatment team include: - Medication Management- MD or MANAGEMENT ADVISOR - Medication Administration and Monitoring- Nurse - Group Therapy- Occupational Therapist - 1:1 Therapy,Disch Planning,family involvement-Agricultural Education Professor
--- NOTE | 2017-06-22 15:59 | SOCIAL WORKER PROG NOTE PSYCH ---
Social Work Progress Note Progress Note Completed initial treatmen plan next one due 06/25/17. Completed [facility] online review.
--- NOTE | 2017-06-22 16:01 | CP SOUTH PROGRESS NOTE PSYCH ---
Psych (Inpt) Progress Note Progress Note The interdisciplinary tear discussed patient's treatment and progress, I met with patient and sister with Billie Wheatley LCSW Depakote level 92.0 Mental Status Examination: Roxanna was focused on discharge and weight. He reason for not wanting medication is significant weight gain (with Zyprexa then Abilify) alert and oriented to time, place, and person. She was cooperative and friendly. She seemed sedated and slurring her words today no bizarreness. Her speech is was not pressure today/slurred. less expansive affect, denied feeling depressed, denied thinking of suicide, denied homicidal ideation, no hallucinations, no paranoid delusions or grandiose delusions today, less latter-day pre-occupation still has difficulties with thought organization (minor/not incoherent in Persian but some circumstantial thoughts), partial insight, difficulties with attention and concentration, no deficits memory Impression and Plan: Roxanna is a 42-year-old single female of [place] origin ([place]) who was admitted in what seemed to be manic decompensation of Bipolar I, likely due to medication non-adherence. The patient has been seeing Dr. Naveed Matos at [facility] Bipolar I, MRE manic with psychotic symptoms Treatment Plan: Continue Inpatient psychiatric care Continue 15 min checks Reduce Abilify to 10 mg daily continue Depakote 1000 mg BID Continue nursing assessments every shift Continue discharge planning by JASON Continue Activity, Milieu, and Group therapy Continue daily evaluation by a psychiatrist Haldol Decanoate 50 mg IM tomorrow Lasix 20 mg Po x once
[2017-06-22 16:10] VITALS: BP 126/64
--- NOTE | 2017-06-22 16:21 | SOCIAL WORKER PROG NOTE PSYCH ---
Social Work Progress Note Progress Note 1:30pm Dr. Burton and this inspector automatic typewriter met with the patient and her sister. Medication concerns and questions were addressed by Dr. Burton. Haldol injectable was proposed, beginning with the oral Haldol medication first. The patient identified significant concerns regarding weight gain associated with medications. Services through [facility] will continue to be explored, particularly medication management with Dr. Matos.
[2017-06-22 19:57] VITALS: BP 127/66
[2017-06-23 08:42] VITALS: BP 121/67
[2017-06-23 11:54] VITALS: BP 130/67
--- NOTE | 2017-06-23 12:40 | CP SOUTH PROGRESS NOTE PSYCH ---
Psych (Inpt) Progress Note Progress Note The interdisciplinary tear discussed patient's treatment and progress Mental Status Examination: Roxanna was talkative with some pressure. She agreed to take Haldol Decanoate 50 mg IM this morning She was alert and oriented to time, place, and person. She was loud but cooperative and friendly. She is less sedated today and was not slurring her words today. She requires re-direction. Her speech is still loud with some pressure, less expansive affect, denied feeling depressed, denied thinking of suicide, denied homicidal ideation, no hallucinations, no paranoid delusions or grandiose delusions today, less baptism pre-occupation. Roxanna Zhao) still has difficulties with thought organization (tangentia, with flights of ideas) poor insight, difficulties with attention and concentration Assessment: Roxanna Zhao) is a 42-year-old single female of [place] origins (Togolese) who was admitted to [facility] in what seemed to be manic decompensation of Bipolar I, likely due to medication non-adherence. The patient has been seeing Dr. Naveed Matos at [facility] for about 3 years or so Bipolar I, MRE manic with psychotic symptoms Treatment Plan Update: Continue Inpatient psychiatric care Continue 15 min checks Continue Abilify 10 mg daily continue Depakote 1000 mg BID Continue nursing assessments every shift Continue discharge planning by GLUE SIZE MACHINE OPERATOR Continue Activity, Milieu, and Group therapy Continue daily evaluation by a psychiatrist Haldol Decanoate 50 mg IM was given today 06/23/2017 Will ask hospitalist to re-evaluate her lower limb edema Will reduce Depakote in case it is contributing to that
--- NOTE | 2017-06-23 14:17 | SOCIAL WORKER PROG NOTE PSYCH ---
Social Work Progress Note Progress Note FREDDY CARRILLO [id number] 1975 FREDDY CARRILLO [id number] Pended Authorization # Client Authorization # Type of Request [id number] CONCURRENT Date of Admission/ Start of Services Requested From Submission Date 06/17/2017 06/23/2017 06/23/2017
[2017-06-23 16:25] VITALS: BP 118/64
--- NOTE | 2017-06-23 19:06 | SOCIAL WORKER PROG NOTE PSYCH ---
Social Work Progress Note Progress Note 5:40pm This science writer met with patient utilizing the language line (pediatric licensed practical nurse - Hemalatha [id number]). Patient identified her mood as "good". Patient was very focused on being able to have laser surgery for her eyes as well as hair removal. She stated that she would like to have her makeup and a manicure. Patient expressed concerns about having her period and only being given two sanitary napkins at a time, requesting more. (Patient's request was relayed to nursing as well as her inquiry about having make up). Patient's moods fluctuated during this meeting, ultimately leading to being very upset and tearful. She was unable to identify what the cause was of the tearfulness. It was determined, between this science writer and the patient, that we would end the meeting and meet again tomorrow. Patient appeared grateful. This science writer received a call from Savi at [facility] to inform that the patient's concurrent review is due on 06/25/17 and the one submitted today would therefore be errored out.
[2017-06-23 20:41] VITALS: BP 124/75
[2017-06-24 07:56] VITALS: BP 125/68
--- NOTE | 2017-06-24 08:44 | CP SOUTH PROGRESS NOTE PSYCH ---
Psych (Inpt) Progress Note Progress Note Roxanna Zhao) remains focused on discharge Mental Status Examination: Roxanna is still talkative with tangents and some pressure. She so far tolerated the Haldol Decanoate 50 mg IM which she received yesterday. Rima is alert and oriented to time, place, and person. She speaks in a loud voice but not angry or agitated. She is cooperative and friendly. She is showing minor sedation (but less sedated than the previous 2 days). She requires re- direction. Her affect is less expansive, denied feeling depressed, denied thinking of suicide, denied violent thoughts ot thoughts of homicide. She denied hallucinations, no paranoid delusions or grandiose delusions today, less mosque pre-occupation (she dreamed, and made it clear it was a dream about a famous cave in the grounds of [email or web address] in [place]). Roxanna Zhao) still has difficulties with thought organization (tangentia, with flights of ideas) poor insight/still focused on being medication-free, difficulties with attention and concentration Assessment: Roxanna Zhao) is a 42-year-old single female of [place] origins (Qatari) who was admitted to [facility] in what seemed to be manic decompensation of Bipolar I, likely due to medication non-adherence. The patient has been seeing Dr. Naveed Matos at [facility] for about 3 years or so. Her likely diagnosis is Bipolar I, MRE manic with psychotic symptoms Treatment Plan Update: Continue inpatient psychiatric care Continue 15 min checks Continue Abilify 10 mg daily continue Depakote-ER 1500 mg at bedtime Continue nursing assessments every shift Continue discharge planning by HEATING TECHNICIAN, slated for discharge on Thursday Continue Activity Therapy, Continue Milieu and Group therapy Continue daily evaluation by a psychiatrist Continue Haldol Decanoate 50 mg IM every 4 weeks (last was on 06/23/2017
[2017-06-24 12:24] VITALS: BP 126/68
[2017-06-24 16:14] VITALS: BP 132/78
--- NOTE | 2017-06-24 16:24 | SOCIAL WORKER PROG NOTE PSYCH ---
Social Work Progress Note Progress Note 1:31pm This chief underwriter spoke with Candy at [facility]. She stated that she will ask Brandy to call this chief underwriter in order to schedule an appointment for medication management and discuss other services. She stated that the patient had been discharged from their program on 04/17/17. This chief underwriter spoke with Rosalba, patient's sister, by phone in response to her voicemail. Rosalba inquired about patient's access to food stamps as well as a visiting nurse. She stated that [facility] may also be able to assist with this as it had been discussed in the past. This chief underwriter informed Rosalba of the message that was relayed to Brandy requesting a call back to discuss services. 3:55pm Misty Ash (LOG DRIVER student) and this chief underwriter met with patient, utilizing the specialty finishing utility person phone service (specialty finishing utility person ID: [id number]). Patient was informed of this writers conversations with [facility] and her sister, Rosalba. Patient expressed looking forward to discharging on Thursday and is willing to continue to take her medications as prescribed and attend outpatient appointments as scheduled following discharge. Patient was also informed that this chief underwriter will discuss food stamps with [facility] and also explore visiting nurse services that may be available to her. Patient expressed gratitude. She began commenting on this chief underwriter's and Misty's looks and commented on wanting makeup and other beauty products. Patient was difficult to redirect during this conversation. She appeared to be repeating herself much of the conversation. Patient did not present as tearful as she had during yesterday's conversation.
[2017-06-24 19:47] VITALS: BP 140/77
[2017-06-25 07:54] VITALS: BP 130/66
[2017-06-25 12:18] VITALS: BP 134/62
--- NOTE | 2017-06-25 13:28 | SOCIAL WORKER PROG NOTE PSYCH ---
See Addendum Social Work Progress Note Progress Note 10:20am Dr. Burton and this quality analyst/technical writer met with patient. Please see Dr. Burton's notes regarding this meeting. Patient reported concerns about swelling on her legs, weight loss/gain concerns. She was agreeable to returning to [facility] and meeting with Dr. Matos as part of her discharge plans. She also signed FANNIE's for [facility] Visiting Nurse and [facility]. Patient appeared easily distracted throughout the session, avoiding questions that were directed towards her. Patient was agreeable to scheduling a meeting with [facility] and to invite her sister to this meeting.
--- NOTE | 2017-06-25 14:36 | SOCIAL WORKER PROG NOTE PSYCH ---
See Addendum Social Work Progress Note Progress Note When I attempted to complete the concurrent online review it was prompting me to do an inital review, I attempted 3 times. I left this information on Savi's voicemail, requesting a call back and assistance to complete the review.
--- NOTE | 2017-06-25 15:43 | CP SOUTH PROGRESS NOTE PSYCH ---
Psych (Inpt) Progress Note Progress Note Roxanna Zhao) remains focused on discharge Mental Status Examination: Roxanna was talkative with tangents and some pressure. Rima is alert and oriented to time, place, and person. She speaks in a loud voice but not angry or agitated. She is cooperative and friendly. She is showing more disorganization and cognitive deficits (likely from Topamax). She requires re-direction, affect is less expansive, denied feeling depressed, denied thinking of suicide, denied violent thoughts ot thoughts of homicide. She denied hallucinations, no paranoid delusions or grandiose delusions today, less evangelical pre-occupation. Roxanna Zhao) still has more difficulties with thought organization (tangentia, with flights of ideas) poor insight/still focused on being medication-free, difficulties with attention and concentration Assessment: Roxanna Zhao) is a 42-year-old single female of [place] origins ([place]ym[place]) who was admitted to [facility] in what seemed to be manic decompensation of Bipolar I, likely due to medication non-adherence. The patient has been seeing Dr. Naveed Matos at [facility] for about 3 years or so. Her likely diagnosis is Bipolar I, MRE manic with psychotic symptoms Treatment Plan Update: Continue inpatient psychiatric care Continue 15 min checks Reduce Abilify to 5 mg daily D/C Topamax Reduce Depakote-ER to 1000 mg at bedtime Continue nursing assessments every shift Continue discharge planning by FIELD WORKER, slated for discharge on Thursday Continue Activity Therapy, Continue Milieu and Group therapy Continue daily evaluation by a psychiatrist Repeat Haldol Decanoate 50 mg IM today Continue Haldol Decanoate 50 mg IM every 4 weeks (last was on 06/23/2017
[2017-06-25 16:23] VITALS: BP 132/68
[2017-06-25 19:56] VITALS: BP 132/67
[2017-06-26 07:34] VITALS: BP 107/63
--- NOTE | 2017-06-26 11:14 | CP SOUTH PROGRESS NOTE PSYCH ---
Psych (Inpt) Progress Note Progress Note The patients care and treatment was reviewed with the interdisciplinary treatment team in the morning reported. The patients discharge plans were also reviewed Mental Status Examination: The patient remains loud and talkative with some pressure. She was alert and oriented to time place and person. She denies currently feeling depressed. She denies feeling anxious. She denied feeling hopeless or worthless about her life. She denied wishing or thinking of suicide. She denied violent thoughts or thoughts of homicide. Despite her tangents and overdetailed the speech and occasional flights of ideas, she is all-in all coherent (not incoherent). There is no agitation or aggressive behavior on the unit. She is cooperative. She is less disorganized than yesterday after we have stopped the Topamax. (I believe the disorganization I saw yesterday was at least partially due to the Topamax). The patient has difficulties with attention and concentration, distractible, and requires redirection. She seems also to have some tendency for obsessive thinking. No observable compulsions or compulsive behaviors were noted. The patient denies hallucinations, denies feeling paranoid, and I was unable to elicit any specific paranoid delusions or other delusions. She seems to still have some poor insight and poor judgment. She tends to obsess about the weight gain and I believe estimate of driving force behind her intention of not taking medications on the outside. So far she has tolerated the second dose of Haldol depot and (has taken a total of 100 mg of Haldol depot into separate doses. She does not have evidence of short-term memory impairment Assessment: Roxanna Zhao) is a 42-year-old single female of [place] origins ([place]osotho) who was admitted to [facility] in what seemed to be manic decompensation of Bipolar I, likely due to medication non-adherence. The patient has been seeing Dr. Naveed Matos at [facility] for about 3 years or so. Her likely diagnosis is Bipolar I, MRE manic with psychotic symptoms. The patient continues to have manic symptoms however there is relative improvement in the intensity of the symptoms. And there is no concern about hair risk to self or risk to others at this point. I further believe that she is not gravely disabled despite the lingering manic symptoms. Treatment Plan Update: Discharged home Patient to follow-up with [facility], Dr. Naveed Matos M.D. Haldol depot 100 mg every 4 weeks the next dose is due in 27 days from today, approximately July 24, 2017 Continue 15 min checks Discontinue Abilify Continue Depakote ER 1000 mg at bedtime and continual Ativan 1 mg at bedtime
[2017-06-26 12:42] VITALS: BP 137/74
--- NOTE | 2017-06-26 13:15 | DISCHARGE SUMMARY REPORT-PSYCH ---
Visit Information Visit Dates/Diagnosis' Admission Date: 06/17/17 Discharge Date: 06/26/17 Reason for Admission: The patient is a 42-year-old single [place] woman of [place] origins who presented to the emergency room in what seems to be an acute manic state with psychotic symptoms. The patient has been noncompliant with her medication for several months. Psy Discharge Primary Diag: Bipolar Disorder Hospital Course Significant Lab Findings: The patient showed mild anemia and her CBC count of the emergency room she had a mildly low sodium at 135 and a mildly elevated BUN of 21 otherwise Labs where unremarkable Her urine toxicology screen was clean from everything blood alcohol level was undetectable As of June 21. Valproic acid blood level was 90.2 Course Complications: The patient had no complications while she was on Inpatient Psychiatry Consultations: There were the patient was seen by the management accounts manager/hospitalist for an admission history and physical and again for lower extremities edema Allergies: Coded Allergies: NO KNOWN ALLERGIES (06/16/17) Hospital Course/TX Response: The patient presented to the emergency department on June 16 and she was discharged on 06/26/2017 During his stay in the hospital she was compliant with medications, she did repeatedly and obsessively complaining about the weight gain which seemed to have been the driving force behind stopping the medications The patient was initially treated with Abilify and Depakote However, because of her repeated and his statements about stopping the medication after she leaves I discussed with her injectable Depo medication and she agreed. While she was at Inpatient Psychiatry she was given 2 injections of Haldol decanoate 50 mg each With the Abilify and the Depakote where it gradually reduced. The patient did not show any side effects from the Haldol injections. Although the patient showed some minor improvement once she was in the hospital, she continued to exhibit manic symptoms. However, the patient did not present with any major risk factors for self-harm or harm to others. I also believe that by the time of discharge there was no great disability and that the patient especially with her strong family ties will be able to maintain food and prison , fluid and medication intake. Other than having loud and pressured speech, the patient was not bizarre or disorganized. During his stay on Inpatient Psychiatry I left 2 messages for her outpatient psychiatrist, Dr. Naveed Matos M.D., updating him on the patient's medication plan. I also contacted Dr. Jasmine to see if she can administer the Haldol Decanoate injections in her office, but she called back stating that she would not be able to. We will pursue visiting nurses to administer the next injection because it is expected that in 4 weeks' time she would no longer be living at a hotel. Patient's condition upon discharge: The patient remains loud and talkative with some pressure in her speech. She was alert and oriented to time, place, and person. She denied feeling depressed, denied feeling anxious, denied feeling hopeless or worthless. She denied wishing or thinking of suicide. She denied having violent thoughts or thoughts of homicide. Despite her tangents and overdetailed speech, and occasional flights of ideas, she was for the most part coherent. There was no agitation or aggressive behavior on the unit. She has been cooperative, slightly less disorganized, There was a period of disorganization during her stay but it seemed in my opinion to be related to being placed on Topamax which was discontinued. The patient continues to have difficulties with attention and concentration as well as distractibility. The patient required redirection. She also seems to have some tendency for obsessive thinking primarily about weights and about getting off the medication after she leaves. There were no compulsive behaviors on the unit. The patient denied hallucinations, denied feeling paranoid, and I was unable to elicit any specific paranoid delusions, grandiose delusions, or bizarre delusions. The patient seemed to be tolerating the Haldol depot injections and did not exhibit any evidence of dystonia or akathisia or parkinsonian shakes. Assessment Patient is a 42-year-old single female of [place] origins was admitted in a manic state with psychotic features. Was initially treated with Abilify and Depakote which were her previous medications. However because of her obsessiveness about getting off the medications because of weight gain we discussed with her injectable Depo medication and she agreed to it. She received a total of Haldol depot 100 mg given to her into doses of 50 mg each by 3 days. The patient showed mild improvement. She continues to exhibit some manic symptoms and signs, however I did not have any concerns regarding his risk to self or risk to others or grave disability by the time of discharge. Discharge plan: Discharge home to family, the parents and her are living at a hotel for the time being but they are looking for an apartment. Haldol decanoate 100 mg intramuscularly every 4 weeks, the next dose is due around July 24, 2017 Will discontinue Abilify We will reduce Depakote ER 2 500 mg at bedtime We'll continue Ativan 1 mg at bedtime The patient is supposed to follow up with care, Dr. Naveed Matos M.D. The patient will be also set up with case management services in order to help her get food stamps and maybe even zhang assistance Discharge HBIPS - Tobacco Use Treatment Offered Post DC Medications Offered: Not Applicable Post DC Tobacco Treatment Plan: Not Applicable - EtOH/Drug Use D/O Treatment Offered Post DC Medications Offered: NA-No EtOH/Drug Use D/O Post DC EtOH/SubAbuse TX Plan: NA-No EtOH/Drug Use D/O Metabolic Screening - Screen if on a Neuroleptic Medication - Metabolic screening should include: - Blood Pressure, BMI, Glucose or Hgb A1c, & a - Lipid profile from within the past 365 days. Metabolic Screening () Not Applicable, patient not on a neuroleptic. OR ([X]) Patient on a neuroleptic(s) . Enter below results for Hemoglobin A1C, and lipid panel if obtained during the last 365 days. BMI: 37.700 Blood Pressure: 137/74 Laboratory Results From [facility] (If applicable): Lab Amylase 93 U/L 06/16/17 1730 Cholesterol 229 MG/DL H 06/16/17 1730 Cholesterol/HDL Ratio 2 % 06/16/17 1730 Glucose 90 mg/dL 06/16/17 1730 HDL Cholesterol 97 mg/dL H 06/16/17 1730 LDL Cholesterol, Calc 117 mg/dL 06/16/17 1730 Triglycerides 79 mg/dL 06/16/17 1730 Discharge Instructions General Discharge Information Multiple Neuroleptics: (X) Not Applicable Abilify discontinued upon discharge OR Document below three failed attempts at monotherapy, or a plan to taper to monotherapy, or augmentation of Clozapine. () Discharge Diet Regular Discharge Activity Normal DC Disposition: Home/Hotel with parents care Other Inst/Recommendations Follow up with Dr. Jasmine for lower extremities edema Copies To: Isaiah Jasmine DO, MD,Naveed
[2017-06-26 15:37] VITALS: BP 127/62
[2017-06-26] MEDS ORDERED: ABILIFY5 M1 PO (17:00)
[2017-06-26] MEDS ORDERED: ATIVAN1 M1 PO ×2 (17:00→17:20)
[2017-06-26] MEDS ORDERED: HALDOL DEC100 MG/1 M IM (17:00)
[2017-06-26] MEDS ORDERED: DIVALPROEX SOD500 M2 PO (17:00)
--- NOTE | 2017-06-26 18:45 | SOCIAL WORKER PROG NOTE PSYCH ---
Social Work Progress Note Progress Note This copy writer spoke with Catherine at [facility]. She stated that the patient would be accepted for visiting nurse services and that they would provide services to the hotel where she is currently living with her family ( [facility], [address] [place] [address] Burton, visiting nurse services will not be needed until the patient is due for her next injection (07/24/17). [facility] and an [facility] has been scheduled for , 07/02/17 at 2pm. A medication appointment will be scheduled for her when she attends this intake appointment. 1:29pm This copy writer spoke with the patient's sister, Rosalba, by phone and reviewed the discharge plans and appointments. She was informed that the patient will meet with [facility] today at 1:30pm (scheduled at 1:15pm today) regarding services. Rosalba is unable to attend due to the time. Rosalba was agreeable to other plans as described above. 1:45pm Dr. Burton, this copy writer and patient met with Wood from [facility]. Wood stated that she would be able to provide services to the patient (particularly setting up food stamp assistance as the patient has requested). This copy writer reviewed disharge plans (appointments) with the andrew's sister when she came to provide transportation home. Rosalba and patient were agreeable to these plans. Faxed Referral(s) 1 Referred To: [facility] Transition of Care Documents sent: Health Summary Faxed to: Care attn: Candy Fax #: [phone] Faxed by: Lon Wheatley LCSW Date faxed: 06/26/17 Time Faxed: [phone] Faxed Referral(s) 2 Referred To: [facility] Transition of Care Documents sent: Health Summary, W10 Faxed to: [facility] Care attn Catherine Fax #: [phone] Faxed by: Lon Wheatley LCSW Date faxed: 06/26/17 Time Faxed: [phone]
== END 2017-06-26 18:30 | DRG 753 ==
LOC: ERH 16:22 → CP SOUTH 06-17 13:48 → ERHI 06-17 13:48 → ENTRNSPT 06-17 20:47 → EDTRNSPTSTS 06-17 20:55 → EDTRNSPT 06-17 20:55 → CP SOUTH 06-17 21:05 → CMPTRNSPT 06-17 21:09 → CP SOUTH 06-17 21:11 → ENRESERV 06-17 23:59 → CP SOUTH 06-18 10:32
PROVIDERS: Emergency Medicine
DX: F31.9 Bipolar disorder, unspecified (principal)
CPT/HCPCS: 36415; 80307; 81003; 81025; 96372; G0463; G0480; J0401; J1631; J3490